=== PATIENT | female | born 1935 | race Hispanic/Latino ===

== ENCOUNTER 2018-04-20 16:37 | Emergency (ER) | payer MEDICARE, SELFPAY ==
[2018-04-20 16:40] VITALS: BP 178/69; PULSE 63; RESP 20; TEMP 36.3; O2SAT 98
[2018-04-20 16:55] LABS: Bacteria Urine None Seen; RBC Urine None Seen (0-5/HPF); WBC Urine None Seen (0-5/HPF)
[2018-04-20 16:58] LABS: Appearance Urine UA CLEAR; Bilirubin Urine UA NEGATIVE (NEGATIVE); Color Urine UA YELLOW; Glucose Urine UA NEGATIVE (Normal); Ketones Urine UA NEGATIVE (NEGATIVE); Leukocyte Esterase Urine UA NEGATIVE (NEGATIVE); Nitrite Urine UA Negative (Negative); Occult Blood Urine UA TRACE-LYSED (Negative); Protein Urine UA NEGATIVE (Negative); Urobilinogen Urine UA 0.2 E.U./dL (0.2)
[2018-04-20 17:16] LABS: Squamous Epithelial Cell Urine 1-5 /HPF
[2018-04-20 17:44] VITALS: BP 182/50; PULSE 60; RESP 14
[2018-04-20 18:08] VITALS: BP 146/41; PULSE 60; RESP 14; O2SAT 100
--- NOTE | 2018-04-20 18:21 | ED_ITS ---
HPI - General Adult General Chief complaint: Urogenital-Female Stated complaint: bladder or kidney infection Time Seen by Provider: 04/20/18 18:07 Source: patient Mode of arrival: ambulatory Limitations: no limitations History of Present Illness HPI narrative: 82-year-old female here for evaluation of right-sided lower back pain. Patient states that she thought maybe she had a kidney infection. She states she had kidney infections many years ago and that is what concerned her today otherwise she would not have come to the emergency department. No vaginal bleeding. No urinary symptoms. No nausea vomiting. No skin changes. No change in bowel habits. States that it does get worse with palpation and movement. Related Data Home Medications Medication Instructions Recorded Confirmed ASPIRIN (#ASPIRIN) 81 mg PO QDAY #0 09/26/11 latanoprost [Xalatan] 1 drp OPHTH HS #0 11/28/11 insulin NPH and regular human BID #0 03/20/17 [Novolin 70/30 U-100 Insulin] omeprazole 20 mg PO QDAY #0 03/20/17 timolol maleate [Timoptic] QDAY #0 03/20/17 Previous Rx's Medication Instructions Recorded albuterol sulfate [Ventolin HFA] 0 puff INH Q4HP PRN #1 ea 03/20/17 diphenoxylate-atropine 1 tab PO Q4HP PRN #14 tab 03/20/17 doxycycline hyclate 100 mg PO Q12H #20 cap 03/20/17 Allergies Allergy/AdvReac Type Severity Reaction Status Date / Time celecoxib [From CELEBREX] Allergy Unknown Unverified 12/12/17 12:18 Review of Systems Constitutional Denies fatigue, Denies fever(s) and Denies headache(s) ENT Ears, Nose, Mouth, and Throat: Denies headache(s) Cardiovascular Denies chest pain and Denies dyspnea Respiratory Denies dyspnea Gastrointestinal Gastrointestinal: Denies abdominal pain, Denies constipation, Denies diarrhea, Denies nausea and Denies vomiting Genitourinary Denies hematuria, Denies dysuria, Denies pelvic pain, Reports flank pain, Denies urinary hesitancy and Denies urinary urgency Musculoskeletal Denies abnormal gait, Denies myalgias and Denies arthralgias Integumentary/Breasts Denies lesions, Denies rash and Denies wounds Neurologic Denies abnormal gait and Denies headache(s) Endocrine Denies fatigue Hematologic/Lymphatic Denies easy bleeding and Denies easy bruising PFSH Surgical History History of cataract removal with insertion of prosthetic lens History of knee replacement S/P total abdominal hysterectomy and bilateral salpingo-oophorectomy Status post appendectomy Status post cholecystectomy Family History Brother Coronary atherosclerosis Father Coronary atherosclerosis Social History Smoking Status: Never smoker Exam Initial Vital Signs Initial Vital Signs: Vital Signs Temperature 97.4 F L 04/20/18 16:40 Pulse Rate 63 04/20/18 16:40 Respiratory Rate 20 04/20/18 16:40 Blood Pressure 178/69 H 04/20/18 16:40 Pulse Oximetry 98 04/20/18 16:40 Const General: cooperative, healthy appearing, comfortable, well developed, well groomed and No acute distress Orientation: alert, awake and oriented x3 HENMT Head: normal to inspection and normocephalic Resp Effort & Inspection: normal respiratory effort Auscultation: clear to auscultation bilaterally Cardio Rate: regular rate Rhythm: regular rhythm GI Inspection: non-distended Palpation: soft, No firm and No tender Back/Spine/Pelvis Other: Right lower back tenderness reproducible with palpation Skin Lesions: lesions noted Rashes: rash noted Neuro General: alert, awake and oriented x3 Extrem General: capillary refill normal Course Orders Ordered: ED Orders 04/20/18 16:46 Urinalysis and Microscopic Stat Vital Signs - 8 hr 04/20/18 16:40 04/20/18 17:44 04/20/18 18:08 Temperature 97.4 F L Pulse Rate 63 60 60 Respiratory Rate 20 14 14 Blood Pressure 178/69 H Blood Pressure [Right Arm] 182/50 H 146/41 H Pulse Oximetry 98 100 Medical Decision Making MDM Narrative Medical decision making narrative: Negative urine. Reproducible right lower back pain. No skin changes consistent with zoster. Physical exam and history not consistent with pyelo or renal stone. Suspect musculoskeletal. Discussed this with the patient and family was at bedside. They are given return precautions. They expressed understanding and agreement with plan. Lab Data Lab results reviewed: Yes I reviewed the patient's lab results. Lab Results 04/20/18 Range/Units 16:46 Urine Color Yellow Urine Appearance Clear Urine pH 5.0 (4.5-8.0) Ur Specific [place] 1.020 (1.000-1.035) Urine Protein Negative (Negative) Urine Glucose (UA) Negative (Normal) g/dL Urine Ketones Negative (NEGATIVE) Urine Occult Blood Trace-lysed (Negative) Urine Nitrate Negative (Negative) Urine Bilirubin Negative (NEGATIVE) Urine Urobilinogen 0.2 (0.2) E.U./dL Ur Leukocyte Esterase Negative (NEGATIVE) Urine RBC None seen (0-5/HPF) Urine WBC None seen (0-5/HPF) Ur Squamous Epith Cells 1-5 /hpf Urine Bacteria None seen (None) Ur Culture Indicated? Not Reportable Micro UA Comment Not Reportable Discharge Plan Departure Patient Disposition: Home Clinical Impression: Back pain Discharge Date/Time: 04/20/18 18:35 Interventions: ED Discharge Assessment Last Done: 04/20/18 18:34 Instructions: DI for Low Back Pain, Activity May Be Better then Rest for Low Back Pain Recovery Activity Restrictions/Additional Instructions: Recommend that you take an anti-inflammatory with food for the lower back pain. Return to the emergency department for any new symptoms, worsening symptoms, fevers, rashes, or any other concerning symptoms. Prescriptions: No Action ASPIRIN (#ASPIRIN) 81 mg PO QDAY Qty: 0 RF: 0 latanoprost [Xalatan] 0.005 % drops 1 drp OPHTH HS Qty: 0 RF: 0 insulin NPH and regular human [Novolin 70/30 U-100 Insulin] 100 UNIT/1 ML suspension BID Qty: 0 RF: 0 omeprazole 20 MG capsule,delayed release(DR/EC) 20 mg PO QDAY Qty: 0 RF: 0 timolol maleate [Timoptic] 0.25 % drops QDAY Qty: 0 RF: 0 doxycycline hyclate 100 MG capsule 100 mg PO Q12H Qty: 20 RF: 0 diphenoxylate-atropine 2.5 MG/0.025 MG tablet 1 tab PO Q4HP PRNQty: 14 RF: 0 albuterol sulfate [Ventolin HFA] 90 MCG/PUFF HFA aerosol inhaler INH Q4HP PRNQty: 1 RF: 0
== END 2018-04-20 18:35 | disposition home or self-care (01) ==
PROVIDERS: Emergency Medicine; Emergency Provider Emergency Medicine
DX: M54.9 Dorsalgia, unspecified (principal)
CPT/HCPCS: 81001; 99282